=== PATIENT | male | born 2000 | race Hispanic/Latino ===

== ENCOUNTER 2021-04-26 02:16 | Emergency (ER) | payer SELFPAY ==
--- NOTE | ~2021-04-26 | XR_ITS ---
EXAMINATION: XR hand RT min 3V EXAM DATE: 04/26/2021 03:18 INDICATION: Pain, swelling To Posterior Area, Hot, Discoloration. TECHNIQUE: Right hand frontal, lateral and oblique projections obtained and reviewed. There is no pr ior study for comparison. FINDINGS: Right metacarpal bones are unremarkable. There are no bony erosions identified. There are no acute fractures or dislocations identified. There is no subcutaneous gas. There is soft tissue sw elling over the entire hand. There are no radiopaque foreign bodies. IMPRESSION: 1. Right hand exam without acute osseous findings. 2. Soft tissue swelling. Reviewed, dictated and finalized at location A.
[2021-04-26 02:20] VITALS: BP 111/83; PULSE 82; RESP 18; TEMP 37.8; O2SAT 98
[2021-04-26 02:45] VITALS: BP 111/83; PULSE 83; RESP 16; TEMP 37.9; O2SAT 100
[2021-04-26] MEDS: CLINDAMYCIN 600 MG/D5W 50 ML 600 MG/50 ML PIGGYBACK 100 MG IVPB (03:27)
[2021-04-26] MEDS: SODIUM CHLORIDE 0.9% IV 1,000 ML 999 ML IV CONT (03:27)
[2021-04-26 03:42] LABS: Basophils Percent Auto 0.2 % (0.2-1.2); Eosinophils Absolute Auto 0.5 K/mm3 (0-0.3); Eosinophils Percent Auto 4.3 % (0-4.4); Hematocrit 44.4 % (42.0-52.0); Hemoglobin 15.2 g/dL (14.0-18.0); Immature Granulocyte Absolute 0.06 K/mm3 (0.00-0.031); Immature Granulocyte Percent A 0.5 % (0-0.5); Lymphocytes Absolute Auto 0.98 K/mm3 (0.9-3.2); Lymphocytes Percent Auto 8.3 % (18.3-44.2); Mean Corpuscular HGB Conc 34.2 g/dl (32-36); Mean Corpuscular Hemoglobin 29.9 pg (26-34); Mean Corpuscular Volume 87.2 fl (80-100); Mean Platelet Volume 10.5 fl (7.4-10.4); Monocytes Absolute Auto 0.7 K/mm3 (0.1-0.6); Monocytes Percent Auto 5.8 % (2.6-8.5); Neutrophils Absolute Auto 9.5 K/mm3 (1.3-6.7); Neutrophils Percent Auto 80.9 % (45.5-73.1); Platelet Count Result 198 k/mm3 (150-375); Red Blood Count 5.09 M/mm3 (4.6-6.20); White Blood Count 11.8 K/mm3 (4.5-10.0)
[2021-04-26 03:52] LABS: Lactic Acid Reflex 0.9 mmol/L (0.7-2.1)
--- NOTE | 2021-04-26 04:24 | ED.GENADULT ---
HPI - General Adult General Chief complaint: Wound/Laceration Stated complaint: right hand swelling/bruising/pain Time Seen by Provider: 04/26/21 02:49 History of Present Illness HPI narrative: Patient 21-year-old gentleman who presents the emergency department with chief complaint of right hand pain. The patient reports he had a small area of bruising develop on the dorsum of his right hand the other day and was seen at another facility the patient reports he was started on antibiotics and has been taking them patient states that it is still becoming more swollen and reports that is tender to touch and has had a fever. The patient denies IV drug use denies trauma states he may have been bitten by something. The patient reports that he has been compliant with his antibiotics Related Data Allergies Allergy/AdvReac Type Severity Reaction Status Date / Time ibuprofen Allergy Unknown Verified 07/09/15 21:14 Review of Systems Review of Systems: A 10 system review of systems was completed on the patient and is negative except for what is stated in the HPI. Nursing and ancillary documentation was reviewed. Exam Narrative: GENERAL: Well-appearing, well-nourished, and in no acute distress. HEAD: Normocephalic, atraumatic. EYES: PERRLA and EOMI. ENT: Nares clear, no rhinorrhea or epistaxis. Mucous membranes moist. NECK: Supple. CHEST: Clear to auscultation. No respiratory distress. HEART: Regular rate and rhythm. No murmur heard. Normal peripheral pulses. ABDOMEN: Soft, nontender, nondistended, normal active bowel sounds. EXTREMITIES: Normal range of motion. No edema. There is swelling present on the dorsum of the right hand with bruising and erythema. SKIN: Warm, dry, no rash. NEURO: No focal deficits. Alert and oriented x3. PSYCH: Normal mood and affect. Course Course Emergency Course: Patient is a normal white blood cell count and normal lactic acid patient's temperature came down and the patient states that the swelling is doing better at this time patient on request for outpatient treatment. The patient was started on clindamycin as an outpatient. Vital Signs Vital signs: Vital Signs Temperature 37.8 C H 04/26/21 02:20 Pulse Rate 82 04/26/21 02:20 Respiratory Rate 18 04/26/21 02:20 Blood Pressure 111/83 04/26/21 02:20 Pulse Oximetry 98 04/26/21 02:20 Temperature 37.4 C 04/26/21 04:49 Pulse Rate 83 04/26/21 02:45 Respiratory Rate 16 04/26/21 02:45 Blood Pressure 111/83 04/26/21 02:45 Pulse Oximetry 100 04/26/21 02:45 Medical Decision Making Vital Signs Vital Signs: Vital Signs Temperature 37.8 C H 04/26/21 02:20 Pulse Rate 82 04/26/21 02:20 Respiratory Rate 18 04/26/21 02:20 Blood Pressure 111/83 04/26/21 02:20 Pulse Oximetry 98 04/26/21 02:20 Temperature 37.4 C 04/26/21 04:49 Pulse Rate 83 04/26/21 02:45 Respiratory Rate 16 04/26/21 02:45 Blood Pressure 111/83 04/26/21 02:45 Pulse Oximetry 100 04/26/21 02:45 Lab Data Result diagrams: 04/26/21 03:22 04/26/21 04:29 Labs: Lab Results 04/26/21 04/26/21 04/26/21 Range/Units 03:22 03:22 04:29 WBC 11.8 H (4.5-10.0) K/mm3 RBC 5.09 (4.6-6.20) M/mm3 Hgb 15.2 (14.0-18.0) g/dL Hct 44.4 (42.0-52.0) % MCV 87.2 (80-100) fl MCH 29.9 (26-34) pg MCHC 34.2 (32-36) g/dl RDW 12.0 (11.5-14.5) % Plt Count 198 (150-375) k/mm3 MPV 10.5 H (7.4-10.4) fl Immature Gran % (Auto) 0.5 (0-0.5) % Neut % (Auto) 80.9 H (45.5-73.1) % Lymph % (Auto) 8.3 L (18.3-44.2) % [place] % (Auto) 5.8 (2.6-8.5) % Eos % (Auto) 4.3 (0-4.4) % Baso % (Auto) 0.2 (0.2-1.2) % Lymph # (Auto) 0.98 (0.9-3.2) K/mm3 [place] # (Auto) 0.7 H (0.1-0.6) K/mm3 Eos # (Auto) 0.5 H (0-0.3) K/mm3 Baso # (Auto) 0.0 (0.0-0.1) K/mm3 Abs Immat Gran (auto) 0.06 H (0.00-0.031) K/mm3 Absolute Neuts (auto) 9.5 H (1.3-6
[2021-04-26 04:49] VITALS: TEMP 37.4
[2021-04-26 04:55] LABS: Barbiturate Screen Urine Negative (Negative); Benzodiazepines Screen Urine Negative (Negative)
[2021-04-26 05:14] LABS: Alanine Aminotransferase 25 U/L (4-50); Albumin Level 4.4 g/dL (3.5-5.1); Alkaline Phosphatase 83 U/L (38-126); Amphetamine Screen Urine Negative (Negative); Anion Gap 7 mmol/L (8-16); Aspartate Amino Transferase 38 U/L (17-59); Bilirubin,Total 1.3 mg/dL (0.2-1.3); Blood Urea Nitrogen 10 mg/dL (9-20); Calcium 8.9 mg/dL (8.4-10.2); Cannabinoid Screen Urine Positive (Negative); Carbon Dioxide 28 mmol/L (22-30); Chloride 102 mmol/L (98-107); Estimated CRCL calculation 104 ml/min; Estimated Glomerular Filt Rate > 60; Glucose 107 mg/dL (65-110); Methadone Screen Urine Negative (Negative); Opiate Screen Urine Negative (Negative); Phencyclidine Screen Urine Negative (Negative); Potassium 4.3 mmol/L (3.4-5.0); Sodium 137 mmol/L (137-145)
[2021-04-26 06:18] VITALS: BP 120/80; PULSE 78; RESP 18; O2SAT 99
[2021-05-31 15:01] LABS: Reference Lab Test Result None Detected
== END 2021-04-26 06:18 | disposition home or self-care (01) ==
PROVIDERS: Emergency Provider Emergency Medicine
DX: L03.113 Cellulitis of right upper limb (principal)
CPT/HCPCS: 36415; 73130; 80053; 80307; 83605; 85025; 87040; 96361; 96365; 99284; J7030